=== PATIENT | female | born 1985 | race African-American/Black ===

== ENCOUNTER 2016-10-21 07:55 | Emergency (ER) | payer SELFPAY ==
--- NOTE | 2016-10-21 09:23 | RAD ---
LEFT HIP 2 VIEWS: Date: )10/21/16 HISTORY: Left hip pain. FINDINGS: Femoral head appears normally maintained. Hip joint is preserved. There is no fracture or acute osse ous lesion. No significant degenerative change. IMPRESSION: Unremarkable left hip. POS: [facility]
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
== END 2016-10-21 09:40 | disposition home or self-care (01) ==
LOC: NAV ERS 07:55
DX: S70.02XA Contusion of left hip, initial encounter (principal); F17.210 Nicotine dependence, cigarettes, uncomplicated; V09.9XXA Pedestrian injured in unspecified transport accident, initial encounter
CPT/HCPCS: 72100

== ENCOUNTER 2017-07-28 16:30 | Emergency (ER) | payer SELFPAY ==
[2017-07-28] MEDS ORDERED: Lidocaine 1% 20 ML MDV ONE (17:00)
== END 2017-07-28 17:24 | disposition home or self-care (01) ==
LOC: NAV ERS 16:30
DX: L02.412 Cutaneous abscess of left axilla (principal); F17.210 Nicotine dependence, cigarettes, uncomplicated
CPT/HCPCS: 10060; J2001

== ENCOUNTER 2019-11-11 17:23 | Emergency (ER) | payer SELFPAY | END 2019-11-11 18:10 | LOC: NAV ERS 17:23 | DX: F10.129 Alcohol abuse with intoxication, unspecified (principal) | CPT/HCPCS: 99283 ==

== ENCOUNTER 2020-02-03 00:52 | Emergency (ER) | payer SELFPAY ==
[2020-02-03] MEDS ORDERED: Ondansetron ODT 4 MG TAB ONE (01:54)
[2020-02-03] MEDS ORDERED: diphenhydrAMINE 25 MG CAP ONE (01:54)
[2020-02-03] MEDS ORDERED: Acetaminophen 500 MG TAB ONE (01:54)
[2020-02-03] MEDS ORDERED: Ketorolac Tromethamine 30 MG/ML VIAL ONE (01:54)
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
== END 2020-02-03 02:00 | disposition home or self-care (01) ==
LOC: NAV ERS 00:52
DX: R51 Headache (principal); M54.2 Cervicalgia; Y00.XXXA Assault by blunt object, initial encounter
CPT/HCPCS: 70450; 72125; J1885; Q0162; Q0163

== ENCOUNTER 2020-08-24 09:21 | Emergency (ER) | payer OTHER, SELFPAY ==
[2020-08-24] MEDS ORDERED: Morphine 4 MG/ML VIAL ONE (10:06)
[2020-08-24 10:29] LABS: #Eosinphils 0.1 thou/uL (0.0-0.7); #Lymphocytes 1.7 thou/uL (1.20-3.40); #Monocytes 0.5 thou/uL (0.11-0.59); #Neutrophils 5.3 thou/uL (1.40-6.50); %Basophils 0.6 % (0.0-1.0); %Eosinophils 1.3 % (0.0-10.0); Mean Corpuscular HGB CONC 31.4 g/dL (32.0-36.0); Mean Corpuscular Volume 89.2 fL (78.0-98.0); Mean Platelet Volume 7.1 fL (7.4-10.4); Platelet Count 325 thou/uL (130-400); Red Blood Cell (RBC) Count 3.92 mill/uL (4.20-5.40); White Blood Cell (WBC) Count 7.6 thou/uL (4.8-10.8)
[2020-08-24 10:41] LABS: Anion Gap 13 mmol/L (10-20); BUN (Urea Nitrogen) 10 mg/dL (7.0-18.7); Calc. Creatinine Clearance 0 mL/min (70-130); Calcium 9.2 mg/dL (7.8-10.44); Carbon Dioxide 25 mmol/L (22-29); Chloride 104 mmol/L (98-107); Glucose 107 mg/dL (70-105); Potassium 3.6 mmol/L (3.5-5.1); Sodium 138 mmol/L (136-145)
== END 2020-08-24 11:10 | disposition home or self-care (01) ==
LOC: NAV ERS 09:21
DX: S92.355A Nondisplaced fracture of fifth metatarsal bone, left foot, initial encounter for closed fracture (principal); S92.342A Displaced fracture of fourth metatarsal bone, left foot, initial encounter for closed fracture; T25.222A Burn of second degree of left foot, initial encounter; F17.210 Nicotine dependence, cigarettes, uncomplicated; V29.9XXA Motorcycle rider (driver) (passenger) injured in unspecified traffic accident, initial encounter
CPT/HCPCS: 80048; 85025; 96374; J2270

== ENCOUNTER 2021-04-17 01:00 | Emergency (ER) | payer OTHER, SELFPAY ==
[2021-04-17] MEDS ORDERED: Sodium Chloride 0.9% 1,000 ML ONE (01:52)
[2021-04-17] MEDS ORDERED: Metoclopramide HCl 10 MG/2 ML VIAL ONE (01:52)
[2021-04-17] MEDS ORDERED: diphenhydrAMINE 50 MG/ML VIAL ONE (01:52)
[2021-04-17 02:13] LABS: Acetaminophen Less than 6.0 mcg/mL (10.0-30.0)
== END 2021-04-17 04:00 | disposition home or self-care (01) ==
LOC: NAV ERS 01:00
DX: S40.012A Contusion of left shoulder, initial encounter (principal); G43.909 Migraine, unspecified, not intractable, without status migrainosus; M54.2 Cervicalgia; F17.210 Nicotine dependence, cigarettes, uncomplicated; V47.5XXA Car driver injured in collision with fixed or stationary object in traffic accident, initial encounter; Y92.410 Unspecified street and highway as the place of occurrence of the external cause
CPT/HCPCS: 80143; 96365; 96375; 80307; J1200; J2765; J7050

== ENCOUNTER 2022-04-15 00:58 | Emergency (ER) | payer SELFPAY ==
[2022-04-15] MEDS ORDERED: Ibuprofen 200 MG TAB ONE (01:58)
== END 2022-04-15 02:20 | disposition home or self-care (01) ==
LOC: NAV ERS 00:58
DX: B34.9 Viral infection, unspecified (principal); K04.4 Acute apical periodontitis of pulpal origin; F17.210 Nicotine dependence, cigarettes, uncomplicated; Z20.822 Contact with and (suspected) exposure to COVID-19
CPT/HCPCS: 87804; 99283; U0003; U0005

== ENCOUNTER 2022-12-17 09:42 | Emergency (ER) | payer SELFPAY ==
[2022-12-17] MEDS ORDERED: Prochlorperazine 10 MG/2 ML VIAL ONE (10:32)
[2022-12-17] MEDS ORDERED: Sodium Chloride 0.9% 1,000 ML ONE (10:32)
[2022-12-17] MEDS ORDERED: Acetaminophen 500 MG TAB ONE (10:32)
[2022-12-17] MEDS ORDERED: diphenhydrAMINE 50 MG/ML VIAL ONE (10:32)
== END 2022-12-17 13:55 | disposition home or self-care (01) ==
LOC: NAV ERS 09:42
DX: R51.9 Headache, unspecified (principal); F17.210 Nicotine dependence, cigarettes, uncomplicated; G40.909 Epilepsy, unspecified, not intractable, without status epilepticus; Z79.899 Other long term (current) drug therapy
CPT/HCPCS: 96365; 96375; J0780; J1200; J7050

== ENCOUNTER 2023-02-20 18:07 | Emergency (ER) | payer SELFPAY ==
[2023-02-20] MEDS ORDERED: Clindamycin 150 MG CAP ONE (18:23)
== END 2023-02-20 18:28 | disposition home or self-care (01) ==
LOC: NAV ERS 18:07
DX: L73.2 Hidradenitis suppurativa (principal); G40.909 Epilepsy, unspecified, not intractable, without status epilepticus; F17.210 Nicotine dependence, cigarettes, uncomplicated
CPT/HCPCS: 99283

== ENCOUNTER 2023-03-07 16:15 | Emergency (ER) | payer SELFPAY ==
[2023-03-07] MEDS ORDERED: Sodium Chloride 0.9% 1,000 ML ONE (17:12)
[2023-03-07] MEDS ORDERED: Acetaminophen 325 MG TAB ONE (17:12)
[2023-03-07 17:23] LABS: #Eosinphils 0.1 thou/uL (0.0-0.7); #Lymphocytes 1.9 thou/uL (1.20-3.40); #Monocytes 0.5 thou/uL (0.11-0.59); #Neutrophils 4.9 thou/uL (1.40-6.50); %Basophils 0.6 % (0.0-1.0); %Eosinophils 0.8 % (0.0-10.0); %Lymphocytes 25.7 % (21.0-51.0); %Monocytes 6.7 % (0.0-10.0); %Neutrophils 66.3 % (42.0-75.0); Hematocrit 32.7 % (36.0-47.0); Hemoglobin 10.2 g/dL (12.0-16.0); Mean Corpuscular HGB CONC 31.1 g/dL (32.0-36.0); Mean Corpuscular Hemoglobin 24.6 pg (27.0-31.0); Mean Corpuscular Volume 79.1 fl (78.0-98.0); Mean Platelet Volume 7.2 fL (7.4-10.4); Platelet Count 359 10x3/uL (130-400); RBC Distribution Width 15.5 % (11.5-14.5); Red Blood Cell (RBC) Count 4.13 mill/uL (4.20-5.40); White Blood Cell (WBC) Count 7.4 10x3/uL (4.8-10.8)
[2023-03-07 17:36] LABS: BHCG - Serum Negative (NEGATIVE); Pregs Control Bar Appear? YES (CONTROL BAR)
[2023-03-07 17:46] LABS: ALT (SGPT) 13 U/L (8-55); AST (SGOT) 12 U/L (5-34); Albumin 4.6 g/dL (3.5-5.0); Alkaline Phosphatase 84 U/L (40-110); Anion Gap 13 mmol/L (10-20); BUN (Urea Nitrogen) 10 mg/dL (7.0-18.7); Bilirubin, Total 0.2 mg/dL (0.2-1.2); Calc. Creatinine Clearance 0 mL/min (70-130); Calcium 9.3 mg/dL (7.8-10.44); Carbon Dioxide 21 mmol/L (22-29); Chloride 106 mmol/L (98-107); Estimated GFR 100; Globulin 3.5 g/dL (2.4-3.5); Glucose 98 mg/dL (70-105); Potassium 3.4 mmol/L (3.5-5.1); Protein, Total 8.1 g/dL (6.0-8.3); Sodium 137 mmol/L (136-145)
[2023-03-07 17:47] LABS: Acetaminophen Less than 10 mcg/mL (10.0-30.0); Alcohol Less than 10.0 mg/dL (Less than 10); Salicylate Less than 8.0 mg/dL (15.0-30.0)
[2023-03-07 18:17] LABS: Bilirubin Negative (Negative); Blood, Urine Negative (Negative); Glucose, Urine (Dipstick) Negative (Negative); Ketone, Urine Negative (Negative); Leukocyte Negative (Negative); Nitrite Negative (Negative); Protein, Urine (Dipstick) Trace mg/dL (Neg-Trace); Urobilinogen 0.2 mg/dL (Less than 2)
[2023-03-07 18:18] LABS: Clarity Hazy (Clear)
[2023-03-07 18:23] LABS: CAUTI Indications for Culture Dysuria,urgency,freq; RBC/HPF 0-3 HPF (0-3); Squamous Epithelial 0-3 HPF (0-3); WBC/HPF None Seen HPF (0-3)
[2023-03-07 18:24] LABS: Urine Culture Reflex No No
[2023-03-07 18:25] LABS: Amphetamine Not Detected (NotDetected); Barbiturates Screen Not Detected (NotDetected); Benzodiazepine Screen Not Detected (NotDetected); Cocaine Metabolite Screen Not Detected (NotDetected); Methadone Not Detected (NotDetected); Methamphetamine Not Detected (NotDetected); Opiate Screen Not Detected (NotDetected); Oxycodone Screen Not Detected (NotDetected); Phencyclidine (PCP) Not Detected (NotDetected); THC/Cannabinoid Screen Detected (NotDetected); Tricyclic Screen Not Detected (NotDetected)
[2023-03-07] MEDS ORDERED: levETIRAcetam 500 MG TAB ONE (18:42)
[2023-03-07] MEDS ORDERED: Potassium Chloride 20 MEQ TAB ONE (18:42)
== END 2023-03-07 18:47 | disposition home or self-care (01) ==
LOC: NAV ERS 16:15
DX: G40.409 Other generalized epilepsy and epileptic syndromes, not intractable, without status epilepticus (principal); R51.9 Headache, unspecified; R00.0 Tachycardia, unspecified; F17.210 Nicotine dependence, cigarettes, uncomplicated
CPT/HCPCS: 70450; 80053; 80306; 80307; 81001; 83605; 84146; 84443; 84703; 85025; 93005; 96360; J7050

== ENCOUNTER 2023-03-15 18:42 | Emergency (ER) | payer SELFPAY ==
[2023-03-15] MEDS ORDERED: Sodium Chloride 0.9% 100 ML ONE (19:20)
[2023-03-15] MEDS ORDERED: levETIRAcetam 500 MG/5 ML VIAL ONE ×2 (19:20→19:22)
[2023-03-15] MEDS ORDERED: levETIRAcetam 500 MG TAB ONE (19:21)
[2023-03-15 19:22] LABS: Clarity Turbid (Clear)
[2023-03-15 19:23] LABS: Specific Gravity, Urine 1.014 (1.002-1.036)
[2023-03-15 19:24] LABS: Bacteria/HPF 1+ HPF (None Seen); CAUTI Indications for Culture Alt mental st,lethar; RBC/HPF Greater than 50 HPF (0-3); Squamous Epithelial 0-3 HPF (0-3); Urine Culture Reflex No No; WBC/HPF 0-3 HPF (0-3)
[2023-03-15 19:25] LABS: #Basophils 0.1 thou/uL (0.0-0.2); #Lymphocytes 2.3 thou/uL (1.20-3.40); #Monocytes 0.7 thou/uL (0.11-0.59); #Neutrophils 6.3 thou/uL (1.40-6.50); %Basophils 0.9 % (0.0-1.0); %Eosinophils 0.1 % (0.0-10.0); %Lymphocytes 24.3 % (21.0-51.0); %Monocytes 7.5 % (0.0-10.0); %Neutrophils 67.2 % (42.0-75.0); Hematocrit 33.9 % (36.0-47.0); Hemoglobin 10.4 g/dL (12.0-16.0); Mean Corpuscular HGB CONC 30.6 g/dL (32.0-36.0); Mean Corpuscular Hemoglobin 24.5 pg (27.0-31.0); Mean Corpuscular Volume 80.3 fl (78.0-98.0); Mean Platelet Volume 7.4 fL (7.4-10.4); Platelet Count 347 10x3/uL (130-400); RBC Distribution Width 15.9 % (11.5-14.5); Red Blood Cell (RBC) Count 4.22 mill/uL (4.20-5.40); White Blood Cell (WBC) Count 9.3 10x3/uL (4.8-10.8)
[2023-03-15 19:33] LABS: Anion Gap 15 mmol/L (10-20); BUN (Urea Nitrogen) 9 mg/dL (7.0-18.7); Calc. Creatinine Clearance 0 mL/min (70-130); Calcium 9.3 mg/dL (7.8-10.44); Carbon Dioxide 18 mmol/L (22-29); Chloride 106 mmol/L (98-107); Estimated GFR 83; Glucose 101 mg/dL (70-105); Potassium 3.6 mmol/L (3.5-5.1); Sodium 135 mmol/L (136-145)
[2023-03-15] MEDS ORDERED: Sodium Chloride 0.9% 1,000 ML ONE (20:15)
== END 2023-03-15 21:05 | disposition home or self-care (01) ==
LOC: NAV ERS 18:42
DX: G40.409 Other generalized epilepsy and epileptic syndromes, not intractable, without status epilepticus (principal); F17.210 Nicotine dependence, cigarettes, uncomplicated; Z79.899 Other long term (current) drug therapy
CPT/HCPCS: 80048; 81001; 85025; 96361; 96365; J1953; J7050